=== PATIENT | male | born 1990 | race Caucasian/White ===

== ENCOUNTER 2021-01-14 17:59 | Emergency (ER) | payer OTHER ==
[~2021-01-14 17:59] MED LIST: IBUPROFEN800 MG PO
== END 2021-01-14 18:50 | disposition home or self-care (01) ==
LOC: ER1 17:59
DX: S60.222A Contusion of left hand, initial encounter (principal); Z88.0 Allergy status to penicillin; W01.10XA Fall on same level from slipping, tripping and stumbling with subsequent striking against unspecified object, initial encounter
CPT/HCPCS: 73130; 99283

== ENCOUNTER 2021-08-29 08:49 | Emergency (ER) | payer OTHER ==
[2021-08-29] MEDS ORDERED: IBUPROFEN600 MG PO (10:33)
== END 2021-08-29 10:48 | disposition home or self-care (01) ==
LOC: ER1 08:49
DX: S80.01XA Contusion of right knee, initial encounter (principal); Z88.0 Allergy status to penicillin; W23.1XXA Caught, crushed, jammed, or pinched between stationary objects, initial encounter; Y92.009 Unspecified place in unspecified non-institutional (private) residence as the place of occurrence of the external cause
CPT/HCPCS: 29530; 73564; 96372; 99283; J1885